=== PATIENT | female | born 1940 | race Caucasian/White ===

== ENCOUNTER 2020-06-12 09:12 | Emergency (ER) | payer MEDICARE, SELFPAY ==
--- NOTE | ~2020-06-12 | XR_ITS ---
[id number] DATE: 06/12/2020 09:38 INDICATION: Left rib pain after fall one week ago. TECHNIQUE: PA chest. 3 views of the left ribs. COMPARISON: None FINDINGS: There are old healed fracture deformities of the posterolateral aspect of the left seventh and eighth ribs. No recent left rib fracture or bone destruction is detected. Normal heart size. There is aortic calcification and mild tortuosity. No hilar or mediastinal enlarge ment. No pulmonary infiltrate or consolidation, pleural effusion or pulmonary vascular congestion or pneumo thorax. IMPRESSION: No active cardiopulmonary disease or recent left rib fracture Reviewed, dictated and finalized at [facility]. Reviewed, dictated and finalized at [facility].
[2020-06-12 09:24] VITALS: BP 155/71; PULSE 82; RESP 16; TEMP 36.2; O2SAT 100
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
== END 2020-06-12 10:18 | disposition home or self-care (01) ==
PROVIDERS: Emergency Provider Nurse Practitioner
DX: S20.212A Contusion of left front wall of thorax, initial encounter (principal); V18.4XXA Pedal cycle driver injured in noncollision transport accident in traffic accident, initial encounter; G40.909 Epilepsy, unspecified, not intractable, without status epilepticus
CPT/HCPCS: 71101; 99213; G0463

== ENCOUNTER 2021-03-13 10:44 | Emergency (ER) | payer MEDICARE, SELFPAY ==
[2021-03-13 10:52] VITALS: BP 135/82; PULSE 86; RESP 16; TEMP 36.9; O2SAT 100
--- NOTE | 2021-03-13 11:37 | ED.FEMALEGU ---
HPI - Female Genitourinary General Chief complaint: Urogenital-Female Stated complaint: POS UTI Time Seen by Provider: 03/13/21 11:28 Source: patient and RN notes reviewed Mode of arrival: ambulatory Limitations: no limitations History of Present Illness HPI Narrative: Patient presents today with a 4 to 5-day history of dysuria and urinary frequency with hematuria that began today. Denies abdominal pain, back pain, fever, nausea or vomiting. Patient wears a pessary and changes it daily. States she gets 1-2 UTIs yearly. She has tried no tdbo-qbn-hrsgqpy treatment prior to arrival. MD elicited complaint: dysuria Related Data Home Medications Medication Instructions Recorded Confirmed atorvastatin 40 mg PO HS 09/03/19 03/13/21 carbamazepine 100 mg PO DAILY 09/03/19 03/13/21 carbamazepine 200 mg PO HS 09/03/19 03/13/21 folic acid 1 mg PO DAILY 09/03/19 03/13/21 levothyroxine [Synthroid] 137 mcg PO DAILY 09/03/19 03/13/21 estradiol 10 mcg VAGINAL DAILY 03/13/21 03/13/21 Allergies Allergy/AdvReac Type Severity Reaction Status Date / Time No Known Allergies Allergy Unknown Verified 03/13/21 10:55 Review of Systems Review of Systems: Narrative: CONSTITUTIONAL: Denies body aches, fever, chills, or sweats. EYES: Denies visual changes, redness, or discharge. ENT: Denies rhinorrhea, congestion, sore throat, or otalgia. CARDIOVASCULAR: Denies chest pain, palpitations, or edema. RESPIRATORY: Denies cough or dyspnea. GASTROINTESTINAL: Denies abdominal pain, nausea, vomiting, or diarrhea. GENITOURINARY: + Dysuria, hematuria, frequency SKIN: Denies rash, itching, or wounds. MUSCULOSKELETAL: Denies back pain, joint pain, or myalgia. NEUROLOGIC: Denies headache, numbness, tingling, or weakness. PSYCH: Denies depression or anxiety. [facility] Past Medical History Medical History (Updated 03/13/21 @ 13:25 by Mandy Martin, WELT SEWER, ) Bladder prolapse Hearing aid worn Seizures Family History Family History Sibling Diabetes mellitus Comments At time of signature, I have reviewed and agree with nursing past medical, surgical, social and family history unless otherwise noted. Please see nursing chart for further information. There is no relevant family history pertinent to the presenting complaint Exam Narrative: Exam Narrative: GENERAL: Well-appearing, well-nourished, and in no acute distress. HEAD: Normocephalic, atraumatic. EYES: EOMI. No redness or drainage. Conjunctivae normal. ENT: Mucous membranes pink and moist. NECK: Normal AROM. CHEST: No respiratory distress. Clear to auscultation. HEART: Regular rate and rhythm. No murmur appreciated. Normal peripheral pulses. ABDOMEN: Soft, nontender, nondistended, normal active bowel sounds.-CVAT MUSCULOSKELETAL: No bony tenderness. EXTREMITIES: Normal range of motion. No edema. SKIN: Warm, dry, no rash. Capillary refill normal. Normal skin turgor. NEURO: No focal deficits. Alert and oriented x3. Gait steady. PSYCH: Normal affect. No signs of depression or anxiety. Course Vital Signs Vital signs: Vital Signs Temperature 98.4 F 03/13/21 10:52 Pulse Rate 86 03/13/21 10:52 Respiratory Rate 16 03/13/21 10:52 Blood Pressure 135/82 03/13/21 10:52 Pulse Oximetry 100 03/13/21 10:52 Temperature 98.4 F 03/13/21 10:52 Pulse Rate 86 03/13/21 10:52 Respiratory Rate 16 03/13/21 10:52 Blood Pressure 135/82 03/13/21 10:52 Pulse Oximetry 100 03/13/21 10:52 Reviewed. Pt has been instructed to follow up with her PCP regarding her elevated blood pressure today. MDM - Female Genitourinary Differential Diagnosis Differential diagnosis: Likely urinary tract infection, vaginitis, cystitis and other (Pyelonephritis, interstitial cystitis) Lab Data Attestation: I reviewed the patient's lab results. Labs: Urine Glucose Negative
== END 2021-03-13 11:46 | disposition home or self-care (01) ==
PROVIDERS: Emergency Provider Nurse Practitioner; PCP Internal Medicine
DX: N30.01 Acute cystitis with hematuria (principal); G40.909 Epilepsy, unspecified, not intractable, without status epilepticus
CPT/HCPCS: 81003; 87086; 99213; G0463

== ENCOUNTER 2023-02-13 07:01 | Observation (INO) | payer MEDICARE, SELFPAY ==
[2023-02-13] VITALS (21 sets, daily range): BP systolic 106–157; BP diastolic 58–85; PULSE 58–80; RESP 15–17; TEMP 36.4–36.8; O2SAT 96–100; BMI 22.7
--- NOTE | ~2023-02-13 | XR_ITS ---
EXAM: XR lumbar spine 2-3V DATE: 02/13/2023 20:33 HISTORY: fall, low back pain . COMPARISON: None available. FINDINGS: Mild rotatory lumbar scoliosis. Osteopenia. Vascular calcifications and phleboliths. 5 non rib-bearing lumbar-type vertebral bodies. Pedicles intact. 4 mm retrolisthesis at L3-4. Alignment oth erwise preserved. Vertebral body heights preserved. Concave endplate deformities at multiple vertebra l bodies. Multilevel degenerative disc disease, severe at L2-3. Multilevel mild lower lumbar facet ar thropathy. IMPRESSION: Grade 1 retrolisthesis at L3-4, presumably on a degenerative basis, unless accompanied by acute pain/tenderness. Osteoporotic changes, consider bone density evaluation. No definite acute fra cture or traumatic malalignment detected in the lumbar spine. Reviewed, dictated and finalized at [facility]. IMPRESSION: Grade 1 retrolisthesis at L3-4, presumably on a degenerative basis, unless accompanied by acute pain/tenderness. Osteoporotic changes, consider dimas ne density evaluation. No definite acute fracture or traumatic malalignment det ected in the lumbar spine.
--- NOTE | ~2023-02-13 | XR_ITS ---
EXAMINATION: XR chest 1V DATE: 02/13/2023 07:40 INDICATION: Syncope. TECHNIQUE: A single frontal view of the chest was obtained. COMPARISON: Chest single view 06/12/2020 FINDINGS: There is mild atelectasis in left lower lung zone. There is no pneumonia, pleural effusion, or pneumothorax. The heart size is normal. There are old healed left rib fractures. IMPRESSION: 1. Mild atelectasis in left lower lung zone. Reviewed, dictated and finalized at location [facility].
--- NOTE | ~2023-02-13 | CT_ITS ---
EXAMINATION: CT brain wo con DATE: 02/13/2023 07:36 INDICATION: Syncope. TECHNIQUE: Computed tomography (CT) of the head was performed without intravenous contrast. The mA wa s adjusted according to patient size. Iterative reconstruction technique was employed. The dose-lengt h product was 605.33 mGy-cm. COMPARISON: Head CT 02/15/2005 FINDINGS: There are scattered areas of low attenuation in the cerebral white matter. There is no intr acranial hemorrhage, acute infarction, or abnormal intracranial mass lesion. The ventricles are enzo l in size. The paranasal sinuses are clear. There are likely changes of ocular lens replacement surge maykel. The mastoid air cells are normal. IMPRESSION: 1. Moderate nonspecific cerebral white matter disease, which likely represents chronic small vessel i schemic disease, worsened from 02/15/2005. Reviewed, dictated and finalized at location [facility]. IMPRESSION: 1. Moderate nonspecific cerebral white matter disease, which likely represents chronic small vessel ischemic disease, worsened from 02/15/2005.
--- NOTE | ~2023-02-13 | XR_ITS ---
EXAM: XR sacrum coccyx min 2V DATE: 02/13/2023 20:33 HISTORY: fall, tailbone pain . COMPARISON: None available. FINDINGS: Decreased mineralization. Subtle transverse lucency through the fourth seen only in the la teral view sacral element. No lytic or blastic lesion. Joint spaces and physes are maintained. No ero enma or periosteal change. Pelvic calcifications may represent phleboliths and calcified fibroids. IMPRESSION: Possible nondisplaced transverse sacral fracture at S4. Consider noncontrast CT of the pe lvis for confirmation. Reviewed, dictated and finalized at location [facility]. IMPRESSION: Possible nondisplaced transverse sacral fracture at S4. Consider no ncontrast CT of the pelvis for confirmation.
--- NOTE | ~2023-02-13 | US_ITS ---
EXAMINATION: US carotid duplex BI DATE: 02/13/2023 14:30 INDICATION: Syncope TECHNIQUE: Grayscale, color Doppler, and pulsed Doppler images of the cervical carotid arteries were obtained. The degree of vessel stenosis is placed in one of the following categories: normal, <50%, 5 0-69%, >=70% but less than near-occlusion, near-occlusion, or total occlusion. Note that percent sten osis relative to normal distal artery lumen diameter is indirectly measured from velocity measurement s as described by Fabrice, et al. Radiology 2003; 229:340-346. Notes: Normal: Peak systolic velocity <125 centimeters/sec and no plaque <50%. Peak systolic velocity <125 ( EDV <40; ICA/CCA PSV ratio <2.0; used these factors only a tandem lesions or low cardiac output or co ntralateral disease) 50-69 %: PSV 125-230 (EDV 40-100; ratio 2-4) >= 70% but less than near occlusion: PSV greater than 230 (EDV > 100; ratio> 4.0) Near Occlusion: PSV that is variable; markedly narrowed lumen Occlusion: Absent flow on color/spectral Doppler and no lumen on sosa scale. COMPARISON: None. FINDINGS: RIGHT: The right common carotid artery (CCA) peak systolic velocity (PSV) is 102 cm/s. The right internal ca rotid artery (ICA) PSV is 99 cm/s. The right ICA end-diastolic velocity (EDV) is 26 cm/s. The right I CA/CCA PSV ratio is 1.0. The external carotid artery (ECA) PSV is 54 cm/s. There is antegrade flow in the right vertebral artery. LEFT: The left CCA PSV is 126 cm/s. The left ICA PSV is 85 cm/s. The left ICA EDV is 24 cm/s. The left ICA/ CCA PSV ratio is 0.7. The ECA PSV is 53 cm/s. There is antegrade flow in the left vertebral artery. IMPRESSION: 1. Less than 50% stenosis in the right internal carotid artery by sonographic criteria. 2. Less than 50% stenosis in the left internal carotid artery by sonographic criteria. Reviewed, dictated and finalized at location B. IMPRESSION: 1. Less than 50% stenosis in the right internal carotid artery by sonographic juan linares. 2. Less than 50% stenosis in the left internal carotid artery by sonographic kahlil morales.
--- NOTE | 2023-02-13 07:04 | ECG_ITS ---
Measurements Intervals [place] Rate: 35 P: 70 ID: 230 QRS: 29 QRSD: 89 T: 53 QT: 415 QTc: 320 Interpretive Statements SINUS BRADYCARDIA WITH FIRST DEGREE AV BLOCK (HR AT 55 BPM) ATRIAL PREMATURE COMPLEX BORDERLINE ECG NO PREVIOUS ECG AVAILABLE FOR COMPARISON Electronically Signed On 02-13-2023 8:02:05 CDT by Veto Carranza D.O.
[2023-02-13 07:22] LABS: Basophils Percent Auto 0.9 % (0.2-1.2); Eosinophils Absolute Auto 0.2 K/mm3 (0-0.3); Eosinophils Percent Auto 4.4 % (0-4.4); Hematocrit 41.2 % (37.0-47.0); Immature Granulocyte Absolute 0.01 K/mm3 (0.00-0.031); Immature Granulocyte Percent A 0.2 % (0-0.5); Lymphocytes Absolute Auto 1.49 K/mm3 (0.9-3.2); Lymphocytes Percent Auto 34.6 % (18.3-44.2); Mean Corpuscular Hemoglobin 32.9 pg (26-34); Mean Corpuscular Volume 96.7 fl (80-100); Mean Platelet Volume 9.3 fl (7.4-10.4); Monocytes Absolute Auto 0.6 K/mm3 (0.1-0.6); Monocytes Percent Auto 12.8 % (2.6-8.5); Neutrophils Percent Auto 47.1 % (45.5-73.1); Platelet Count Result 247 k/mm3 (150-375); Red Blood Count 4.26 M/mm3 (4.2-5.4); White Blood Count 4.3 K/mm3 (4.5-10.0)
--- NOTE | 2023-02-13 07:25 | ED.GENADULT ---
HPI - General Adult General Chief complaint: Syncope Stated complaint: SYNCOPY Time Seen by Provider: 02/13/23 07:03 History of Present Illness HPI narrative: 82-year-old female presenting to the emergency department for evaluation after having a syncopal episode. Patient states that she had a walk from the bedroom to the bathroom without issue, had used the restroom and was returning to the bedroom when she had a syncopal episode. Patient states she had no feeling of lightheaded or dizziness. Patient initially states that she had no recollection of the fall but then stated that she feels that she lowered herself down to the ground. Patient states she did not injure herself during the fall. heard a thunk and went to check on her and states that she was lying on the ground but was alert and conscious. Patient presented to the emergency department by EMS. Patient does have a prior history of seizures and does take medications for this. Patient did not bite her tongue or have any loss of bowel or bladder control. Patient had no pain from the injury. does not describe a postictal episode after the episode. In the emergency department patient denies any complaints at this time. Patient reports she has been eating and drinking well and has no complaints of recent illness. Related Data Home Medications Medication Instructions Recorded Confirmed atorvastatin 40 mg tablet 40 mg PO HS 09/03/19 02/13/23 carbamazepine 100 mg 100 mg PO DAILY 09/03/19 02/13/23 tablet,extended release,12 hr carbamazepine 100 mg 200 mg PO HS 09/03/19 02/13/23 tablet,extended release,12 hr folic acid 1 mg tablet 1 mg PO DAILY 09/03/19 02/13/23 levothyroxine 137 mcg tablet 137 mcg PO DAILY 09/03/19 02/13/23 (Synthroid) estradiol 10 mcg vaginal tablet 10 mcg vaginal USEASDIRECTD 03/13/21 02/13/23 yjafpdsrcaok-ninwrjyw-sabwun tablet 1 tablet PO DAILY 02/13/23 02/13/23 ofloxacin 0.3 % ear drops 4 drp LEFT EAR TID 02/13/23 02/13/23 Allergies Allergy/AdvReac Type Severity Reaction Status Date / Time No Known Allergies Allergy Unknown Verified 02/07/23 12:00 Review of Systems Review of Systems: All systems reviewed & are unremarkable except as noted in HPI and below PMFSH Past Medical History Medical History (Updated 02/13/23 @ 13:27 by Nikki Garcia PA-C) Bladder prolapse Hypercholesterolemia Hypothyroidism Osteoporosis Seizure disorder Surgical History Surgical History (Updated 02/13/23 @ 13:23 by Nikki Garcia PA-C) History of appendectomy History of hernia repair History of partial nephrectomy Benign tumor excised. Family History Family History Sibling Diabetes mellitus Social History Social History (Updated 02/13/23 @ 13:24 by Nikki Garcia PA-C) Social History: Surrogate medical decision maker: Drew Castillo, spouse. Code status: Full code. Smoking status: Never smoker Alcohol intake: current Drinks per week: 2 Alcohol use details: Drinks wine in moderation. Substance use: never Lack of Transportation: No Lack of Food: Never True Current Housing: I Have Housing Concerned About Future Housing: No Difficulty Paying Gas/Electric Bills: No Difficulty Paying for Meds: No Currently Unemployed: No Education: Master's Degree or Higher Difficulty w/ Childcare or Family Care: No Living arrangements: with family Additional living arrangements comments: Lives with spouse in [place]. Spiritual care concerns: No Exam Narrative: APPEARANCE: Well appearing, no pain, no distress, well-nourished. HEAD: normocephalic, atraumatic. EYES: PERRLA/EOMI, conjunctivae clear. NOSE: Normal no drainage NECK: Supple. No adenopathy, no masses. RESPIRATORY: Airway patent, respirations nonlabored. Clear to auscultation bilaterally, no rales, rhonchi, wheezing. CARDIOVASCULAR: Regular rate and rhythm without mu
[2023-02-13 07:33] LABS: Alanine Aminotransferase 47 U/L (6-35); Albumin Level 4.1 g/dL (3.5-5.1); Alkaline Phosphatase 63 U/L (38-126); Anion Gap 4 mmol/L (8-16); Aspartate Amino Transferase 48 U/L (14-36); Bilirubin,Total 0.4 mg/dL (0.2-1.3); Blood Urea Nitrogen 18 mg/dL (7-17); Carbon Dioxide 29 mmol/L (22-30); Chloride 101 mmol/L (98-107); Estimated CRCL calculation 51 ml/min; Estimated Glomerular Filt Rate > 60; Glucose 108 mg/dL (65-110); Potassium 4.1 mmol/L (3.4-5.0); Sodium 134 mmol/L (137-145)
[2023-02-13 07:49] LABS: Magnesium 2.2 mg/dL (1.6-2.3)
[2023-02-13 09:20] LABS: Free T4 Free Thyroxine Reflex 1.04 ng/dL (0.78-2.19)
[2023-02-13] MEDS: LEVOTHYROXINE SODIUM 112 MCG, LEVOTHYROXINE SODIUM 25 MCG 137 MCG PO (09:59)
[2023-02-13 10:13] LABS: Total Triiodothyronine (T3) 1.03 NG/ML (0.97-1.69)
--- NOTE | 2023-02-13 11:44 | ADMGEN ---
This patient, Beverly Castillo, was admitted to Medical Room 340-01. Patient/family oriented to hospital policies and general routines including ID bracelet, bed and alarms, visiting hours, pain management, procedures, bathroom and other care routines, personal items, smoking policy, room service/diet, and visiting hours. Information on how to activate the Rapid Response Team has been discussed. Patient/Family are encouraged to report perceived risks to care and to ask questions if they do not understand what they are told or what they should do.
--- NOTE | 2023-02-13 13:13 | PM.IMHP ---
H&P: HPI History of Present Illness Date/Time: 02/13/23 13:00 Chief Complaint: Syncope. Narrative: This is a pleasant 82-year-old female with history of seizures, hypothyroidism, and osteoporosis who presented to the emergency department via EMS from home for evaluation after syncopal episode. Early this morning she got up to use the bathroom (it is not unusual for her to get up every several hours to urinate) and she remembers exiting the bathroom. Her heard a thud in the carpeted hallway and when he went to check on her she was lying on the ground and was alert and oriented. She had no recollection as to what had occurred and she denies having a prodrome prior to the fall. It is believed that she had a brief syncopal episode. She has not had a seizure for 10 years, is compliant with her medications, and there was no evidence of tongue bite or bladder or bowel incontinence. She does not believe that there was any head trauma and her only complaint is of pain in the tailbone. She denies feelings of lightheadedness, dizziness, vertigo, chest pain, pleuritic pain, shortness a breath, nausea, vomiting, and sweats. She has no known history of cardiac disease. She is quite healthy and is very active, walking 30 minutes each day. Vital signs were stable on arrival to the ED and her orthostatic vital signs were normal. EKG showed sinus bradycardia however with first-degree AV block and a ventricular rate of 35. Labs were significant for a mild neutropenia, sodium 134, BUN 18, creatinine 0.60, AST 40, ALT 47. Brain CT and chest x-ray showed no acute findings. She is being admitted in this setting for stroke workup. Review of Systems Review of Systems: Twelve systems were reviewed and are negative except for as per HPI. [facility] Past Medical History Medical History (Updated 02/13/23 @ 13:27 by Nikki Garcia PA-C) Bladder prolapse Hypercholesterolemia Hypothyroidism Osteoporosis Seizure disorder Surgical History Surgical History (Updated 02/13/23 @ 13:23 by Nikki Garcia PA-C) History of appendectomy History of hernia repair History of partial nephrectomy Benign tumor excised. Family History Family History Sibling Diabetes mellitus Social History Social History (Updated 02/13/23 @ 20:04 by Nikki Garcia PA-C) Social History: Surrogate medical decision maker: Drew Castillo, spouse. Code status: Full code. Smoking status: Never smoker Alcohol intake: current Drinks per week: 2 Alcohol use details: Drinks wine in moderation. Substance use: never Lack of Transportation: No Lack of Food: Never True Current Housing: I Have Housing Concerned About Future Housing: No Difficulty Paying Gas/Electric Bills: No Difficulty Paying for Meds: No Currently Unemployed: No Education: Master's Degree or Higher Difficulty w/ Childcare or Family Care: No Living arrangements: with family Additional living arrangements comments: Lives with spouse in [place]. 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 Spiritual care concerns: No Meds Home Medications and Allergies Home Medications Medication Instructions Recorded Confirmed Type atorvastatin 40 mg tablet 40 mg PO HS 09/03/19 02/13/23 History carbamazepine 100 mg 100 mg PO DAILY 09/03/19 02/13/23 History tablet,extended release,12 hr carbamazepine 100 mg 200 mg PO HS 09/03/19 02/13/23 History tablet,extended release,12 hr folic acid 1 mg tablet 1 mg PO DAILY 09/03/19 02/13/23 History levothyroxine 137 mcg tablet 137 mcg PO DAILY 09/03/19 02/13/23 History (Synthroid) estradiol 10 mcg vaginal tablet 10 mcg vaginal USEASDIRECTD 03/13/21 02/13/23 History qxbdgahrshku-lagmjixc-brmppe tablet 1 tablet PO DAILY 02/13/23 02/13/23 History ofloxacin 0.3 % ear drops 4 drp LEFT EAR TID 02/13/23 02/13/23
--- NOTE | 2023-02-13 13:26 | ECHO_ITS ---
Patient Info Name: Beverly Castillo Age: 82 years : 1940 Gender: Female Ht: 63 in Wt: 128 lbs BSA: 1.61 m2 HR: 62 bpm BP: 121 / 68 mmHg Heart Rhythm: Sinus Rhythm Technical Quality: Good Exam Date: 02/13/2023 2:35 PM Exam Location: [facility] Patient Status: Inpatient Admit Date: 02/13/2023 Staff Ordering Physician: Nikki Garcia PA-C Harpooner: Mary Balbuena RDCS Attending Provider: Rigoberto Guzmán MD Referring Physician: Jose TINAJERO; Exam Type: CA echo doppler color flow Study Info Indications R00.1 - Bradycardia, unspecified R55 - Syncope and collapse Complete two-dimensional, color flow and Doppler transthoracic echocardiogram is performed. Summary 1. Complete two-dimensional, color flow and Doppler transthoracic echocardiogram is performed. 2. Left ventricular chamber dimension is normal. 3. Left ventricular systolic function is normal, estimated at 65-70%. 4. The left ventricular diastolic function is grade I diastolic dysfunction. 5. Right ventricular systolic function is normal. 6. Left atrial chamber dimension is mildly enlarged. 7. Right atrial chamber dimension is mildly enlarged. 8. There is mild aortic valve sclerosis. 9. There is mild aortic valve regurgitation. 10. There is mild mitral valve regurgitation. 11. There is mild tricuspid valve regurgitation. Left Ventricle Left ventricular chamber dimension is normal. Left ventricular systolic function is normal, estimated at 65-70%. There is no increased left ventricular wall thickness. The left ventricular diastolic function is grade I diastolic dysfunction. Right Ventricle Right ventricular chamber dimension is normal. Right ventricular systolic function is normal. Left Atria Left atrial chamber dimension is mildly enlarged. Right Atria Right atrial chamber dimension is mildly enlarged. Atrial Septum Intact interatrial septum visualized by color flow imaging. Aortic Valve The aortic valve is trileaflet. There is mild aortic valve sclerosis. There is no aortic valve stenosis. There is mild aortic valve regurgitation. Pulmonic Valve The pulmonic valve is not well visualized. Mitral Valve There is no mitral valve stenosis. There is mild mitral valve regurgitation. Tricuspid Valve There is mild tricuspid valve regurgitation. Pericardium/Pleural There is trivial anterior pericardial effusion. Inferior Vena Cava Normal inferior vena cava with >50% collapse upon inspiration consistent with normal right atrial pressure, 3 mmHg. Aorta The aortic root size at the sinus of Valsalva is normal. Left Ventricular Outflow Tract Name Value Normal LVOT 2D LVOT Diameter 1.9 cm LVOT Doppler LVOT Peak Gradient 5 mmHg LVOT Mean Gradient 3 mmHg LVOT VTI 28 cm LVOT VTI/AV VTI Ratio 0.8 LVOT Stroke Volume 78 ml LVOT CO 4.9 l/min LVOT CI 3.0 l/min/m2 Pulmonic Valve Name Va
[2023-02-13] MEDS: CARBAMAZEPINE XR 100 MG TAB.SR.12H 200 MG PO (20:47)
[2023-02-13] MEDS: ATORVASTATIN 40 MG TABLET PO (20:47)
[2023-02-14] VITALS (9 sets, daily range): BP systolic 118–147; BP diastolic 66–74; PULSE 60–76; RESP 16–18; TEMP 36.6; O2SAT 96–98
[2023-02-14 05:52] LABS: Hematocrit 38.8 % (37.0-47.0); Hemoglobin 13.3 g/dL (12.0-15.0); Mean Corpuscular HGB Conc 34.3 g/dl (32-36); Mean Corpuscular Hemoglobin 32.4 pg (26-34); Mean Corpuscular Volume 94.6 fl (80-100); Mean Platelet Volume 9.6 fl (7.4-10.4); Platelet Count Result 246 k/mm3 (150-375); Red Cell Distribution Width 12.8 % (11.5-14.5); White Blood Count 5.4 K/mm3 (4.5-10.0)
[2023-02-14 06:12] LABS: Anion Gap 6 mmol/L (8-16); Blood Urea Nitrogen 17 mg/dL (7-17); Calcium 8.8 mg/dL (8.4-10.2); Carbon Dioxide 27 mmol/L (22-30); Chloride 102 mmol/L (98-107); Estimated CRCL calculation 51 ml/min; Estimated Glomerular Filt Rate > 60; Glucose 102 mg/dL (65-110); Magnesium 2.4 mg/dL (1.6-2.3); Potassium 4.2 mmol/L (3.4-5.0); Sodium 135 mmol/L (137-145)
[2023-02-14] MEDS: CARBAMAZEPINE XR 100 MG TAB.SR.12H PO (08:17)
[2023-02-14] MEDS: FOLIC ACID 1 MG TABLET PO (08:18)
[2023-02-14] MEDS: OPTI-GEN TAB 1 TABLET PO (08:18)
--- NOTE | 2023-02-14 12:45 | PM.IMPN ---
Progress Note: A&P Assessment and Plan (1) Syncope: Code(s): R55 - Syncope and collapse Status: Acute Assessment and Plan: Etiology not entirely clear. It does not sound as though she had a prodrome prior to this episode. She was bradycardic in the 30s in the ED and EKG showed first-degree block. She will be monitored on telemetry to rule out cardiac dysrhythmia and sinus pause. Carotid Doppler ultrasounds with <50% stenosis of bilateral internal carotid arteries. Echo pending for further evaluation. Cardiology consulted as she may need an event monitor on discharge. Fall precautions implemented. Orthostatic vital signs negative, continue to monitor (2) Bradycardia: Code(s): R00.1 - Bradycardia, unspecified Status: Acute Assessment and Plan: Plan is as detailed above. She is not on rate-controlling medications. Heart rate has been stable in the 50s to 70s since admission. Appreciate cardiology recommendations. (3) Hypothyroidism: Code(s): E03.9 - Hypothyroidism, unspecified Status: Acute Assessment and Plan: TSH is within normal limits. Continue levothyroxine (4) Seizure disorder: Code(s): G40.909 - Epilepsy, unspecified, not intractable, without status epilepticus Status: Acute Assessment and Plan: It is unlikely that she had a seizure based on history. Continue carbamazepine. Subjective Date/time seen: 02/14/23 12:45 Interval history: Date of service: 02/14/23 Beverly Castillo is an 82 year old female with a history of hypothyroidism, seizure disorder, osteoporosis who is seen in follow up for syncope and bradycardia.She does complain of some pain in her tailbone from her fall but states that this has improved. She denies dizziness, lightheadedness, weakness, unsteadiness. Denies chest pain or palpitations. Denies any neurologic symptoms including visual changes, speech changes, dysphagia. She has been able to tolerate her diet without difficulty. She denies abdominal pain, nausea, vomiting, fever, or chills. Review of Systems Review of Systems: Twelve systems were reviewed and are negative except for as per HPI. All systems reviewed & are unremarkable except as noted in HPI and below Exam Narrative: General: Well-nourished, well-appearing 82-year-old female, sitting up in bed, comfortable, NARD Neuro: awake, alert and oriented x4, speech clear, no focal neuro deficits noted HEENMT: normocephalic, atraumatic, EOMI, sclerae anicteric Respiratory: clear to auscultation bilaterally, nonlabored breathing Cardio: regular rate, regular rhythm with S1-S2 Abdomen: nondistended, normoactive bowel sounds, soft, nontender to palpation Extremities: no edema, erythema, or tenderness to palpation Skin: no rashes or lesions, warm and dry Psych: appropriate mood and affect, judgment and insight intact Objective Data Vital Signs Vital Signs: Vital Signs - 24 hr 02/13/23 14:58 02/13/23 14:00 02/13/23 16:00 Temperature 98.1 F Pulse Rate 62 63 Respiratory Rate 16 Blood Pressure 106/58 L Pulse Oximetry 98 Oxygen Delivery Room Air 02/13/23 20:00 02/13/23 20:00 02/13/23 20:00 Temperature 98.1 F Pulse Rate 69 69 69 Respiratory Rate 16 16 Blood Pressure 106/58 L Pulse Oximetry 98 98 Oxygen Delivery Room Air 02/13/23 20:48 02/13/23 20:50 02/13/23 20:53 Temperature 97.9 F Pulse Rate 67 73 80 Respiratory Rate 16 Blood Pressure 141/70 H 136/77 157/85 H Pulse Oximetry 97 Oxygen Delivery 02/14/23 00:00 02/14/23 04:00 02/14/23 04:22 Temperature 98 F Pulse Rate 67 60 76 Respiratory Rate 18 Blood Pressure 118/66 Pulse Oximetry 98 Oxygen Delivery 02/13/23 21:25 02/14/23 07:39 02/14/23 08:00 Temperature Pulse Rate Respiratory Rate Blood Pressure Pulse Oximetry 98 96 Oxygen Delivery Room Air Room Air Room Air Intake/Output Intake/Output: Intake
--- NOTE | 2023-02-14 14:58 | PM.CNCAR ---
Assessment and Plan Assessment and plan (1) Syncope: Code(s): R55 - Syncope and collapse Status: Acute Assessment and Plan: One episode of syncope last evening while ambulating from the bathroom back to bed. No prodrome prior to syncopal event. So far, there is no evidence by EKG or telemetry to support any cardiac cause of this syncopal event. Her initial EKG showed sinus bradycardia with a 1st degree AVB, rate 55bpm. EKG machine read rate as 35, so there was concern about bradycardia induced syncope, but once again manual calculation of HR was 55 and thus far on telemetry she has not experienced any significant bradycardia. Her BP has been stable. There were some telemetry alarms for bradycardia in the 20's and 30's but upon telemetry strip review these capture artifact and/or poor electrode placement. Per nursing staff, when new telemetry electrodes were placed, HR improved and she has remained in sinus rhythm generally in the 60's. 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 (3) NSVT (nonsustained ventricular tachycardia): Code(s): I47.29 - Other ventricular tachycardia Status: Acute Assessment and Plan: She did have a 4 beat run of NSVT on telemetry. This would not explain syncope, though. As above, outpatient telemetry. History of Present Illness History of Present Illness Consult date/time: 02/14/23 14:58 Requesting physician: Nikki Garcia PA-C Consult reason: Other (syncope, bradycardia ) Reason For Visit: syncope Narrative: Ms. Castillo is an 82 year old female with a medical history of hypothyroidism, dyslipidemia, and seizures who presented to the Emergency Department yesterday for evaluation of syncope. Patient states she got up in the night to use the bathroom, and on her return to bed she lost consciousness in the bathroom. She states she regained consciousness and began to crawl off the tile in the bathroom to some nearby carpet. Her heard her fall and by the time he reached her she was alert and oriented. She does not recall having any dizziness or light headedness prior to passing out. She does not have any cardiac history but does state she previously wore a Holter monitor and had a loop recorder implanted as part of work up for her seizures. According to her report the Holter monitor and loop were unremarkable. She denies any chest pain, palpitations, shortness of breath. She does sometimes have mild ankle swelling. Since her admission to the hospital she has not had any recurrence of syncope and has been ambulating without any problems. Cardiology is being asked to see her to evaluate her for any cardiac cause of her syncope. Review of Systems Review of Systems: All systems reviewed & are unremarkable except as noted in HPI and below PMFSH Past Medical History Medical History Bladder prolapse Hypercholesterolemia Hypothyroidism Osteoporosis Seizure disorder Surgical History Surgical History History of appendectomy History of hernia repair History of partial nephrectomy Benign tumor excised. Family History Family History Sibling Diabetes mellitus Social History Social History Social History: Surrogate medical decision maker: Drew Castillo, spouse. Code status: Full code. Smoking status: Never smoker Alcohol intake: current Drinks per week: 2 Alcohol use details: Drinks wine in moderation. Substance use: never Lack of Transportation: No Lack of Food: Never True Current Housing: I Have Housing Concerned
--- NOTE | 2023-02-14 16:43 | PM.DS ---
DS: Admitting Diagnosis Discharge Date 02/14/2023 Admitting Diagnosis syncope DS: Discharge Diagnosis Discharge Diagnosis (1) Syncope: Code(s): R55 - Syncope and collapse Status: Acute Assessment and Plan: Etiology not entirely clear. It does not sound as though she had a prodrome prior to this episode. She was bradycardic in the 30s in the ED and EKG showed first-degree block. She was monitored with no evidence of cardiac dysrhythmia and sinus pause. Carotid Doppler ultrasounds with <50% stenosis of bilateral internal carotid arteries. Echo unremarkable. Patient was seen in consultation by Cardiology and a 30 day environmental monitoring specialist was recommended as an outpatient. She will follow-up with cardiology as an outpatient. Orthostatic vital signs negative. Avoid AV lexie blocking agents. (2) Bradycardia: Code(s): R00.1 - Bradycardia, unspecified Status: Acute Assessment and Plan: Plan is as detailed above. She is not on rate-controlling medications. Heart rate Remained stable following admission. Thirty day event monitor as noted above. (3) Hypothyroidism: Code(s): E03.9 - Hypothyroidism, unspecified Status: Acute Assessment and Plan: TSH is within normal limits. Continue levothyroxine (4) Seizure disorder: Code(s): G40.909 - Epilepsy, unspecified, not intractable, without status epilepticus Status: Acute Assessment and Plan: It is unlikely that she had a seizure based on history. Continue home carbamazepine. DS: Summary Hospital Course Hospital Course: date of admission: 02/13/2023 date of discharge: 02/14/2023 Beverly Castillo is an 82-year-old female with a history of seizure disorder, hypothyroidism, hypercholesterolemia who presented to the emergency department on 02/13/2023 after an episode of syncope. She was admitted to the hospitalist service for further evaluation and management. Please see above for further details. She was seen in consultation by Cardiology during admission and was arranged to have outpatient 30 day event monitor. She will follow-up with Cardiology and her PCP as an outpatient. she was feeling much improved, back to her baseline state of health and felt comfortable with plans for discharge home and outpatient follow-up. Discussed with the patient worrisome signs and symptoms for which to return and she was discharged in hemodynamically stable condition on 02/14/2023. Time Spent with Patient Time attestation: Total time spent providing and/or coordinating discharge services: 40 minutes Time spent: Greater than 30 minutes Exam Narrative: General: Well-nourished, well-appearing 82-year-old female, sitting up in bed, comfortable, NARD Neuro: awake, alert and oriented x4, speech clear, no focal neuro deficits noted HEENMT: normocephalic, atraumatic, EOMI, sclerae anicteric Respiratory: clear to auscultation bilaterally, nonlabored breathing Cardio: regular rate, regular rhythm with S1-S2 Abdomen: nondistended, normoactive bowel sounds, soft, nontender to palpation Extremities: no edema, erythema, or tenderness to palpation Skin: no rashes or lesions, warm and dry Psych: appropriate mood and affect, judgment and insight intact DS: Data Data Completed and Pending Labs on day of discharge: Labs from last 24 hours 02/14/23 05:16 WBC 5.4 RBC 4.10 L Hgb 13.3 Hct 38.8 MCV 94.6 MCH 32.4 MCHC 34.3 RDW 12.8 Plt Count 246 MPV 9.6 Sodium 135 L Potassium 4.2 Chloride 102 Carbon Dioxide 27 Anion Gap 6 L BUN 17 Creatinine 0.60 L Estim Creat Clear Calc 51 Estimated GFR > 60 Glucose 102 Calcium 8.8 Magnesium 2.4 H TSH (Reflex) 2.790 Imaging Radiologist's impression: ITS Impressions Head CT 02/13/23 07:38 IMPRESSION: 1. Moderate nonspecific cerebral white matter disease, which likely represents chronic small vessel ischemic disease, worsened from
== END 2023-02-14 17:28 | disposition home or self-care (01) ==
LOC: ANHED 10:11 → ANH3MED 10:48
PROVIDERS: Physician Assistant; Admitting Provider Hospitalist; Emergency Provider Emergency Medicine; Visit Provider Physician Assistant
DX: R55 Syncope and collapse (principal); R00.1 Bradycardia, unspecified; E03.9 Hypothyroidism, unspecified; G40.909 Epilepsy, unspecified, not intractable, without status epilepticus; I44.0 Atrioventricular block, first degree; E78.00 Pure hypercholesterolemia, unspecified; M81.0 Age-related osteoporosis without current pathological fracture; I47.29 Other ventricular tachycardia; I08.3 Combined rheumatic disorders of mitral, aortic and tricuspid valves; R90.82 White matter disease, unspecified; M54.50 Low back pain, unspecified; M53.3 Sacrococcygeal disorders, not elsewhere classified; J98.11 Atelectasis; F10.90 Alcohol use, unspecified, uncomplicated; Z79.890 Hormone replacement therapy; Z79.899 Other long term (current) drug therapy
CPT/HCPCS: 36415; 70450; 71045; 72100; 72220; 80048; 80053; 83735; 84439; 84443; 84480; 85025; 85027; 93005; 93306; 93880; 99285; A9270; G0378

== ENCOUNTER 2024-02-22 21:33 | Emergency (ER) | payer MEDICARE, SELFPAY ==
--- NOTE | ~2024-02-22 | XR_ITS ---
XR chest 1V portable 02/22/2024 23:04 Indication: Syncope Procedure: AP portable chest Comparison: 02/13/2023 Findings: Bibasilar atelectasis. No focal pneumonia, edema, significant effusion or pneumothorax. No acute osseous abnormality. Impression: 1: Bibasilar atelectasis. Reviewed, dictated and finalized at location B. Impression: 1: Bibasilar atelectasis.
--- NOTE | ~2024-02-22 | CT_ITS ---
EXAMINATION: CT BRAIN W/O DATE: 02/22/2024 23:03 INDICATION: Syncope TECHNIQUE: Computed tomography (CT) of the head was performed without intravenous contrast. The dose- length product was 681.00 mGy-cm. Automated exposure control and iterative reconstruction technique w ere employed. COMPARISON: 02/13/2023 FINDINGS: There is mild generalized atrophy. There are scattered mild periventricular and subcortical white matter changes, most likely related to small vessel ischemic disease (microangiopathy). No acu te infarction, hemorrhage, mass or mass effect. No ventriculomegaly or midline shift. Midline sagittal images demonstrate a normal corpus callosum, c raniovertebral junction and sella turcica. Basilar cisterns are patent. Paranasal sinuses and mastoids are pneumatized. No depressed skull fractures. IMPRESSION: 1. No acute intracranial abnormality. Reviewed, dictated and finalized at location B.
[2024-02-22 21:23] VITALS: BP 137/71; PULSE 64; RESP 17; TEMP 36.8; O2SAT 94
--- NOTE | 2024-02-22 21:41 | ECG_ITS ---
[facility] [address] Test Date: 2024-02-22 Pat Name: Beverly Castillo Department: Room: Gender: F Boardmarker: : 1940 Requested By: Pablo Sharma Order Number: [id number] Reading MD: Jason Leonardo M.D. Measurements Intervals [place] Rate: 65 P: 66 NV: 221 QRS: 35 QRSD: 93 T: 63 QT: 426 QTc: 444 Interpretive Statements SINUS RHYTHM WITH FIRST DEGREE AV BLOCK WITH OCCASIONAL SUPRAVENTRICULAR PREMATURE COMPLEXES No previous ECG available for comparison Electronically Signed On 02-23-2024 12:06:39 CDT by Jason Leonardo M.D.
[2024-02-22 21:48] LABS: Basophils Absolute Auto 0.1 K/mm3 (0.0-0.1); Basophils Percent Auto 1.2 % (0.2-1.2); Eosinophils Absolute Auto 0.2 K/mm3 (0-0.3); Hematocrit 37.9 % (37.0-47.0); Hemoglobin 13.1 g/dL (12.0-15.0); Immature Granulocyte Absolute 0.04 K/mm3 (0.00-0.031); Immature Granulocyte Percent A 0.8 % (0-0.5); Lymphocytes Absolute Auto 1.86 K/mm3 (0.9-3.2); Lymphocytes Percent Auto 37.3 % (18.3-44.2); Mean Corpuscular HGB Conc 34.6 g/dl (32-36); Mean Corpuscular Hemoglobin 32.6 pg (26-34); Mean Corpuscular Volume 94.3 fl (80-100); Mean Platelet Volume 9.3 fl (7.4-10.4); Monocytes Absolute Auto 0.7 K/mm3 (0.1-0.6); Monocytes Percent Auto 13.8 % (2.6-8.5); Neutrophils Absolute Auto 2.2 K/mm3 (1.3-6.7); Neutrophils Percent Auto 43.9 % (45.5-73.1); Platelet Count Result 232 k/mm3 (150-375); Red Blood Count 4.02 M/mm3 (4.2-5.4); Red Cell Distribution Width 12.8 % (11.5-14.5)
[2024-02-22 21:59] LABS: Alanine Aminotransferase 38 U/L (6-35); Albumin Level 4.2 g/dL (3.5-5.1); Alkaline Phosphatase 80 U/L (38-126); Anion Gap 9 mmol/L (4-12); Aspartate Amino Transferase 40 U/L (14-36); Bilirubin,Total 0.4 mg/dL (0.2-1.3); Blood Urea Nitrogen 15 mg/dL (7-17); Calcium 8.7 mg/dL (8.4-10.2); Carbon Dioxide 21 mmol/L (22-30); Chloride 101 mmol/L (98-107); Estimated CRCL calculation 50 ml/min; Estimated Glomerular Filt Rate > 60; Glucose 125 mg/dL (65-110); Potassium 3.5 mmol/L (3.4-5.0); Sodium 131 mmol/L (137-145)
[2024-02-22 22:38] LABS: NT Pro B Type Natriuretic Pept 173 pg/mL (19.9-100); Troponin I < 0.012 ng/mL (0.000-0.034)
[2024-02-22 22:45] LABS: Procalcitonin 0.1 ng/mL
[2024-02-22 23:22] LABS: Prothrombin Time 13.3 Seconds (11.1-14.7)
[2024-02-22 23:23] LABS: Partial Thromboplastin Time 33.4 Seconds (22.3-36.8)
[2024-02-22] MEDS: SODIUM CHLORIDE 0.9% IV 1,000 ML 999 ML IV CONT ×2 (23:23)
[2024-02-22] MEDS: ONDANSETRON INJ 4 MG/2 ML VIAL IV PUSH (23:24)
[2024-02-22 23:40] LABS: Appearance Urine Clear (Clear); Bilirubin Urine Negative (Negative); Blood Urine Negative (Negative); Color Urine Yellow (Yellow); Glucose Urine UA Negative (Negative); Ketones Urine Negative (Negative); Leukocyte Esterase Ur Negative LEU/UL (Negative); Nitrate Urine Negative (Negative); Protein Urine Negative (Negative); Specific Grav Ur 1.011 (1.001-1.035); Urobilinogen Urine 0.2 mg/dL (<2.0); pH Urine 7.5 (5.0-9.0)
[2024-02-22 23:42] LABS: Add Urine Microscopic? NO
--- NOTE | 2024-02-23 00:04 | ED.GENADULT ---
HPI - General Adult General Chief complaint: Syncope Stated complaint: syncopal episode, pale, n/v now Time Seen by Provider: 02/22/24 21:48 History of Present Illness HPI narrative: patient 83-year-old female who presents emergency department with chief complaint of Syncope and nausea vomiting. Patient was out eating at a restaurant felt very full stood up had a brief syncopal episode fell struck her head patient family reported that she was pale and had nausea and vomiting. The patient reports that she received some IV fluids prior to arrival by EMS received Shelby.tvan patient did have 1 glass of wine prior to arrival Related Data Home Medications Medication Instructions Recorded Confirmed atorvastatin 40 mg tablet 40 mg PO HS 09/03/19 02/13/23 carbamazepine 100 mg 100 mg PO DAILY 09/03/19 02/13/23 tablet,extended release,12 hr carbamazepine 100 mg 200 mg PO HS 09/03/19 02/13/23 tablet,extended release,12 hr folic acid 1 mg tablet 1 mg PO DAILY 09/03/19 02/13/23 levothyroxine 137 mcg tablet 137 mcg PO DAILY 09/03/19 02/13/23 (Synthroid) estradiol 10 mcg vaginal tablet 10 mcg vaginal USEASDIRECTD 03/13/21 02/13/23 yyecgigcsnny-bvbbqkke-eokiob tablet 1 tablet PO DAILY 02/13/23 02/13/23 ofloxacin 0.3 % ear drops 4 drp LEFT EAR TID 02/13/23 02/13/23 Allergies Allergy/AdvReac Type Severity Reaction Status Date / Time No Known Allergies Allergy Unknown Verified 02/22/24 21:35 Review of Systems Review of Systems: A 10 system review of systems was completed on the patient and is negative except for what is stated in the HPI. Nursing and ancillary documentation was reviewed. FORMERLY [facility], [facility]–1983 Past Medical History Medical History Bladder prolapse Hypercholesterolemia Hypothyroidism Osteoporosis Seizure disorder Surgical History Surgical History History of appendectomy History of hernia repair History of partial nephrectomy Benign tumor excised. Family History Family History Sibling Diabetes mellitus Social History Social History Social History: Surrogate medical decision maker: Drew Castillo, spouse. Code status: Full code. Smoking status: Never smoker Alcohol intake: current Drinks per week: 2 Alcohol use details: Drinks wine in moderation. Substance use: never Lack of Transportation: No Lack of Food: Never True Current Housing: I Have Housing Concerned About Future Housing: No Difficulty Paying Gas/Electric Bills: No Difficulty Paying for Meds: No Currently Unemployed: No Education: Master's Degree or Higher Difficulty w/ Childcare or Family Care: No Living arrangements: with family Additional living arrangements comments: Lives with spouse in [place]. 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 Spiritual care concerns: No Exam Narrative: GENERAL: Well-appearing, well-nourished, and in no acute distress. HEAD: Normocephalic, atraumatic. EYES: PERRLA and EOMI. ENT: Nares clear, no rhinorrhea or epistaxis. Mucous membranes moist. NECK: Supple. CHEST: Clear to auscultation. No respiratory distress. HEART: Regular rate and rhythm. No murmur heard. Normal peripheral pulses. ABDOMEN: Soft, nontender, nondistended, normal active bowel sounds. EXTREMITIES: Normal range of motion. No edema. SKIN: Warm, dry, no rash. NEURO: No focal deficits. Alert and oriented x3. PSYCH: Normal mood and affect. Course Vital Signs Vital signs: Vital Signs Temperature 36.8 C 02/22/24 21:23 Pulse Rate 64 02/22/24 21:23 Respiratory Rate 17 02/22/24 21:23 Blood Pressure 137/71 02/22/24 21:23 Pulse Oximetry 94 02/22/24 21:23 Oxygen Delivery R
[2024-02-23 00:36] VITALS: BP 103/52; PULSE 78; RESP 16; O2SAT 97
[2024-02-23 01:30] VITALS: BP 112/66; PULSE 64; RESP 16; O2SAT 98
== END 2024-02-23 01:51 | disposition home or self-care (01) ==
PROVIDERS: Emergency Provider Emergency Medicine
DX: R55 Syncope and collapse (principal); R11.2 Nausea with vomiting, unspecified; E03.9 Hypothyroidism, unspecified; G40.909 Epilepsy, unspecified, not intractable, without status epilepticus; E78.00 Pure hypercholesterolemia, unspecified; M81.0 Age-related osteoporosis without current pathological fracture; Z90.5 Acquired absence of kidney; Z79.899 Other long term (current) drug therapy
CPT/HCPCS: 36415; 70450; 71045; 80053; 81003; 83605; 83735; 83880; 84145; 84484; 85025; 85610; 85730; 93005; 96361; 96374; 99284; J2405; J7030